=== PATIENT | female | born 1995 | race Caucasian/White ===

== ENCOUNTER 2018-05-28 21:52 | Emergency (ER) | payer BC ==
[2018-05-28] MEDS ORDERED: methylPREDNISolone 125 MG* 2 ML VIAL IM ONE (22:05)
[2018-05-28 22:09] VITALS: BP 130/90
--- NOTE | 2018-05-28 22:11 | UC ---
Throat Pain/Nasal Liam HPI - HPI Summary HPI Summary: Patient has been feelins sick the past week, during a [employer] hockey practice 5 days ago, she became very dizzy, her heart was racing and the ATC sent her to the ER for evaluation. Her cardiac wrokup was negative, strep and mono was negative. She played field hockey the past few days. TOday her throat is sore and she feels like her glands are swollen. - History of Current Complaint Stated Complaint: SWOLLEN GLANDS Time Seen by Provider: 05/28/18 21:55 Hx Obtained From: Patient ?: No Onset/Duration: Sudden Onset, Lasting Weeks - 1 Severity: Moderate Cough: None Associated Signs & Symptoms: Positive: Dysphagia - Allergies/Home Medications Allergies/Adverse Reactions: Allergies Allergy/AdvReac Type Severity Reaction Status Date / Time fur bearing animals Allergy Hives Uncoded 05/28/18 22:12 Home Medications: Home Medications Oc 1 tab PO DAILY 05/28/18 [History Confirmed 05/28/18] PMH/Surg Hx/FS Hx/Imm Hx Previously Healthy: Yes - Family History Known Family History: Positive: Cardiac Disease, Hypertension Review of Systems Constitutional: Fatigue Skin: Negative Eyes: Negative ENT: Sore Throat, Sinus Congestion Respiratory: Cough Cardiovascular: Negative Gastrointestinal: Negative Genitourinary: Negative Motor: Negative Neurovascular: Negative Musculoskeletal: Negative Neurological: Negative Psychological: Negative Is Patient Immunocompromised?: No All Other Systems Reviewed And Are Negative: Yes Physical Exam Triage Information Reviewed: Yes Appearance: Well-Nourished, Ill-Appearing, Pain Distress Vital Signs Reviewed: Yes Eye Exam: Normal ENT: Positive: Pharyngeal erythema, TM bulging - bilateral Dental Exam: Normal Neck exam: Normal Neck: Positive: Supple, Nontender, No Lymphadenopathy Respiratory Exam: Normal Respiratory: Positive: Chest non-tender, Lungs clear, Normal breath sounds Cardiovascular Exam: Normal Cardiovascular: Positive: RRR, No Murmur, Pulses Normal Abdominal Exam: Normal Abdomen Description: Positive: Nontender, No Organomegaly, Soft, CVA Tenderness (R) - neg, CVA Tenderness (L) - neg Bowel Sounds: Positive: Present Musculoskeletal Exam: Normal Musculoskeletal: Positive: Strength Intact, ROM Intact, No Edema Neurological Exam: Normal Neurological: Positive: Alert Psychological Exam: Normal Skin Exam: Normal Throat Pain/Nasal Course/Dx - Course Course Of Treatment: hx obtained, exam performed ,meds reviewed, IM solumedrol given and treated for viral URI - Differential Dx/Diagnosis Differential Diagnosis/HQI/PQRI: Otitis Media, Pharyngitis, Sinusitis, URI Provider Diagnoses: serous otitis. URI Discharge - Sign-Out/Discharge Documenting (check all that apply): Patient Departure All imaging exams completed and their final reports reviewed: Yes - Discharge Plan Condition: Stable Disposition: HOME Patient Education Materials: Viral Syndrome (ED) Referrals: No Primary Care Phys,NOPCP [Primary Care Provider] - Additional Instructions: 1. salt water gargles to help with the sore throat and to kill germs 2. GET PLENTY OF REST!!!!!! this is necessary to let your body fight off infection 3. Increase your fluid intake 4. Ibuprofen ( 400 mg every 4 hours) or tylenol 1000 mg every 8 hours for pain and fever as needed. 5. FOllow up with your doctor when you return home if symptoms get worse. 6 VIruses typically run 10 - 14 days. - Billing Disposition and Condition Condition: STABLE Disposition: Home
== END 2018-05-28 22:31 | disposition home or self-care (01) ==
LOC: UCCORT 21:52
DX: H65.90 Unspecified nonsuppurative otitis media, unspecified ear (principal); J06.9 Acute upper respiratory infection, unspecified
CPT/HCPCS: 96372; 99202; G0463; J2930